=== PATIENT | male | born 1950 | race Caucasian/White ===

== ENCOUNTER 2016-11-25 10:14 | Day surgery (SDC) | payer OTHER ==
--- NOTE | ~2016-11-25 | EGD ---
EGD REPORT [facility] [address] [id number] NAME: HANNAH AVELAR : [birth year] STATUS : REG [facility] PAT#: [id number] AGE: 66 ADM/REG DATE : 11/25/16 MR#: [id number] REPORT SERV DATE: 11/25/16 DICTATED BY: WILBERTO RAMOS DATE: 11/25/16 REPORT STATUS : Draft TRANSCRIBED BY: [facility] DATE: 11/25/16 Endoscopy Center Patient Name: Hannah Avelar Date of : 1950 Attending MD: WILBERTO RAMOS MD Procedure Date No Time: 11/25/2016 Procedure: Upper GI endoscopy Indications: Dyspepsia Referring MD: ERIC MEYER Medicines: See the Anesthesia note for documentation of the administered medications Complications: No immediate complications. Procedure: Pre-Anesthesia Assessment: - ASA Grade Assessment: III - A patient with severe systemic disease. After obtaining informed consent, the endoscope was passed under direct vision. Throughout the procedure, the patient's blood pressure, pulse, and oxygen saturations were monitored continuously. The GIF [id number] was introduced through the mouth, and advanced to the second part of duodenum. The upper GI endoscopy was accomplished without difficulty. The patient tolerated the procedure well. Findings: The 2nd part of the duodenum was normal. Biopsies were taken with a cold forceps for histology. Mild inflammation was found in the gastric antrum. Biopsies were taken with a cold forceps for histology. The cardia and gastric fundus were normal on retroflexion. A 4 cm hiatus hernia was present. Impression: - Normal 2nd part of the duodenum. Biopsied. - Gastritis. Biopsied. - Hiatus hernia. Recommendation: - Patient has a contact number available for emergencies. The signs and symptoms of potential delayed complications were discussed with the patient. Return to normal activities tomorrow. Written discharge instructions were provided to the patient. - Regular diet. - Continue present medications. - FOR YOUR BIOPSY RESULTS: Please go to [email or web address] and register to receive your EGD REPORT [address] [address] NAME: HANNAH AVELAR : [birth year] STATUS : REG [facility]#: [id number] AGE: 66 ADM/REG DATE : 11/25/16 MR#: [id number] REPORT SERV DATE: 11/25/16 DICTATED BY: WILBERTO RAMOS DATE: 11/25/16 REPORT STATUS : Draft TRANSCRIBED BY: [employer] DATE: 11/25/16 results via the portal. Your biopsy results will be posted there in about 7 to 10 days. IF you do not see result in 10 days, call office. - To help your GERD: small meals, no fatty or fried foods, no tomato sauces, no peppermint, no spearmint, avoid alcohol, avoid coffee/tea, no chocolate - Eat 1/2 size meals with small snack in between - Follow up with Dr Ramos or his nurse practitioner in 4 weeks Procedure Code(s): --- Professional --- 93601, Esophagogastroduodenoscopy, flexible, transoral; with biopsy, single or multiple Diagnosis Code(s): --- Professional --- K29.70, Gastritis, unspecified, without bleeding K44.9, Diaphragmatic hernia without obstruction or gangrene K30, Functional dyspepsia CPT copyright 2013 [employer]. All rights reserved. The codes documented in this report are preliminary and upon casing wringer operator review may be revised to meet current compliance requirements. Wilbetro Ramos MD WILBERTO RAMOS MD 11/25/2016 12:07 PM This report has been signed electronically. Number of Addenda: 0 Note Initiated On: 11/25/2016 11:45 AM Scope Withdrawal Time 0 hours 0 minutes 0 seconds [id number] [id number]
[~2016-11-25 10:14] MED LIST: ASAB PO; CENTRUM; GARLIC PO; LIPITOR80 MG PO; LOP50 PO
== END 2016-11-25 23:59 | disposition home or self-care (01) ==
LOC: DMU 10:14
PROVIDERS: Internal Medicine Gastroenterology
PROC: 0DB68ZX Excision of Stomach, Via Natural or Artificial Opening Endoscopic, Diagnostic (ICD-10-PCS; 2016-11-25)
PROC: 0DB98ZX Excision of Duodenum, Via Natural or Artificial Opening Endoscopic, Diagnostic (ICD-10-PCS; principal; 2016-11-25 12:00)
DX: K29.70 Gastritis, unspecified, without bleeding (principal); K44.9 Diaphragmatic hernia without obstruction or gangrene; I25.10 Atherosclerotic heart disease of native coronary artery without angina pectoris; I73.9 Peripheral vascular disease, unspecified; K21.9 Gastro-esophageal reflux disease without esophagitis; Z88.0 Allergy status to penicillin
CPT/HCPCS: 88305